=== PATIENT | female | born 1995 | race Caucasian/White ===

== ENCOUNTER → 2024-10-21 | Outpatient (REF) | payer OTHER ==
[2024-10-21 13:13] LABS: ALT/SGPT 10 U/L (7.0-40); AST/SGOT 13 U/L (<34); CALCIUM LEVEL 9.4 MG/DL (8.5-10.1); CARBON DIOXIDE LEVEL 28 MMOL/L (20-31); CHLORIDE LEVEL 101 MMOL/L (98-107); CHOLESTEROL LEVEL 148 MG/DL (<200); CHOLESTEROL RISK RATIO 3.02 (<5); CREATININE FOR GFR 0.67 MG/DL (0.55-1.30); GLOMERULAR FILTRATION RATE > 90.0 (>60); LDL CHOLESTEROL 83.3 MG/DL (<100); NON-HDL-C 99.1 MG/DL; POTASSIUM SERUM 4.0 MMOL/L (3.5-5.1); SODIUM LEVEL 140 MMOL/L (136-145); TRIGLYCERIDES LEVEL 79 MG/DL (<150); VITAMIN B12 LEVEL 725 PG/ML (211-911)
[2024-10-21 13:15] LABS: BASO # 0.1 10^3/uL (0.0-0.2); BASO % 0.7 % (0.0-1.0); EOS # 0.0 10^3/uL (0.0-0.5); EOS % 0.5 % (0.0-3.0); LYMPH # 2.5 10^3/uL (1.5-5.0); LYMPH % 30.3 % (24.0-44.0); MONO # 0.5 10^3/uL (0.0-0.8); MONO % 5.9 % (2.0-8.0); NEUTROPHILS # 5.1 10^3/uL (1.5-8.5); NEUTROPHILS % 62.2 % (36.0-66.0); PLATELET COUNT, AUTOMATED 272 10^3/uL (150-450)
[2024-10-21 13:28] LABS: ESTIMATED AVERAGE GLUCOSE 91.0 MG/DL (60-110)
== END ==
LOC: M SFHCCLAY 07:39
PROVIDERS: ATTEND Student in an Organized Health Care Education/Training Program
DX: Z00.00 Encounter for general adult medical examination without abnormal findings (principal)

== ENCOUNTER → 2024-12-22 | Outpatient (CLI) | payer OTHER ==
[2024-12-22 14:33] LABS: PLATELET COUNT, AUTOMATED 221 10^3/uL (150-450)
[2024-12-22 14:45] LABS: LDH LACTATE DEHYDROGENASE 139 U/L (120-246)
[2024-12-22 14:46] LABS: ALT/SGPT 11 U/L (7.0-40); AST/SGOT 16 U/L (<34); CREATININE FOR GFR 0.59 MG/DL (0.55-1.30); GLOMERULAR FILTRATION RATE > 90.0 (>60)
[2024-12-22 15:08] LABS: TOTAL PROTEIN,RANDOM URINE < 6.0 MG/DL (0.0-14.0)
[2024-12-22 15:19] LABS: HIV 1&2 SCREEN NEGATIVE (NEGATIVE)
[2024-12-22 15:28] LABS: HEPATITIS C VIRUS ABY INDEX < 0.02 INDEX (<0.8)
[2024-12-22 16:28] LABS: Trichomonas vaginalis (AMP) NOT DETECTED (NEGATIVE)
[2024-12-22 16:52] LABS: GC DNA AMPLIFICATION NEGATIVE (NEGATIVE)
== END ==
LOC: M PLALAB 08:58
PROVIDERS: ATTEND Nurse Practitioner Family
DX: Z34.80 Encounter for supervision of other normal pregnancy, unspecified trimester (principal)

== ENCOUNTER → 2025-01-18 | Outpatient (CLI) | payer OTHER | LOC: M PLALAB 10:30 | PROVIDERS: ATTEND Student in an Organized Health Care Education/Training Program | DX: Z34.80 Encounter for supervision of other normal pregnancy, unspecified trimester (principal) ==

== ENCOUNTER → 2025-03-01 | Outpatient (CLI) | payer OTHER | LOC: M WHC 09:58 | PROVIDERS: ATTEND Student in an Organized Health Care Education/Training Program | DX: Z34.82 Encounter for supervision of other normal pregnancy, second trimester (principal); Z3A.19 19 weeks gestation of pregnancy ==